=== PATIENT | male | born 1950 | race American Indian/Alaskan Native ===

== ENCOUNTER 2024-03-07 13:00 | Emergency (ER) | payer MEDICARE, MEDICAID ==
[2024-03-07 14:37] LABS: TROPONIN I 8.8 pg/mL (4.0-60.3)
[2024-03-07 14:45] LABS: BASE EXCESS VENOUS,POC 5 mmol/L (-2 - 3+); PCO2 VENOUS,POC 43 mmHg (41-51); PH VENOUS,POC 7.45 pH Units (7.32-7.43)
== END 2024-03-07 17:04 ==
LOC: FB.ED 13:00
DX: R07.9 Chest pain, unspecified (principal); R55 Syncope and collapse; I48.91 Unspecified atrial fibrillation; E78.00 Pure hypercholesterolemia, unspecified; E11.9 Type 2 diabetes mellitus without complications; Z87.891 Personal history of nicotine dependence; Z79.01 Long term (current) use of anticoagulants; Z79.84 Long term (current) use of oral hypoglycemic drugs; Z79.899 Other long term (current) drug therapy
CPT/HCPCS: 36415; 71045; 83735; 83880; 84484; 85379; 93005; 93010; 99284; 99285